=== PATIENT | female | born 1995 | race Caucasian/White ===

== ENCOUNTER 2019-08-11 11:35 | Inpatient (IN) | payer OTHER ==
[~2019-08-11] VITALS: Ht 162.6 cm; Wt 75.9 kg
[2019-08-11 10:18] LABS: BASOPHILS ABSOLUTE AUTO 0.02 K/mm3 (0.00-0.23); BASOPHILS PERCENT AUTO 0 % (0-2); EOSINOPHILS ABSOLUTE AUTO 0.07 K/mm3 (0.00-0.68); EOSINOPHILS PERCENT AUTO 1 % (0-6); Hematocrit 36.4 % (33.0-51.0); IMMATURE GRAN ABSOLUTE AUTO 0.04 K/mm3 (0.00-0.10); IMMATURE GRAN PERCENT AUTO 0 % (0-1); LYMPHOCYTES ABSOLUTE AUTO 2.91 K/mm3 (0.84-5.20); LYMPHOCYTES PERCENT AUTO 29 % (21-46); MONOCYTES ABSOLUTE AUTO 0.86 K/mm3 (0.16-1.47); MONOCYTES PERCENT AUTO 9 % (4-13); Mean Corpuscular HGB 30.5 pg (26.0-34.0); Mean Corpuscular Volume 93 fL (80-100); Mean Platelet Volume 9.9 fL (9.1-12.4); NEUTROPHILS PERCENT AUTO 61 % (41-73); Platelet Count 188 K/mm3 (150-400); RDW Coefficient Variation 12.4 % (11.7-14.2); RDW Standard Deviation 42.2 fL (35.1-46.3); Red Blood Cell Count 3.93 M/mm3 (3.80-5.20)
[~2019-08-11 11:35] MED LIST: AMOX50SU PO; LANS30EC; PRENATAL TABLE1 EAC2; Verotin-Gr Cap1 EACH PO; Zantac150 MG PO
[2019-08-12 09:55] LABS: PO2 Cord - Arterial 14.4 mmHg (16-20); pH Cord - Arterial 7.31 (7.28-7.35)
[2019-08-12 09:57] LABS: PCO2 Cord - Venous 47.4 mmHg (40-50); PO2 Cord - Venous 26.2 mmHg (28-32); pH Umbilical Cord - Venous 7.35 (7.26-7.35)
--- NOTE | 2019-08-12 10:02 | NUR ---
08/12/19 1002 Loni Ellison MALE BORN OVER REPEAT SECTION. APGARS 9/9. CORD SEGMENT GIVEN TO RT. CORD BLOOD GIVEN TO BABY RN. WEIGHT [phone]), PLACENTA [id number].
[2019-08-13 05:34] LABS: BASOPHILS ABSOLUTE AUTO 0.02 K/mm3 (0.00-0.23); BASOPHILS PERCENT AUTO 0 % (0-2); EOSINOPHILS ABSOLUTE AUTO 0.13 K/mm3 (0.00-0.68); EOSINOPHILS PERCENT AUTO 1 % (0-6); Hematocrit 31.9 % (33.0-51.0); Hemoglobin 10.6 g/dL (11.5-16.0); IMMATURE GRAN ABSOLUTE AUTO 0.06 K/mm3 (0.00-0.10); IMMATURE GRAN PERCENT AUTO 1 % (0-1); LYMPHOCYTES ABSOLUTE AUTO 3.88 K/mm3 (0.84-5.20); LYMPHOCYTES PERCENT AUTO 32 % (21-46); MONOCYTES ABSOLUTE AUTO 1.04 K/mm3 (0.16-1.47); MONOCYTES PERCENT AUTO 9 % (4-13); Mean Corpuscular HGB 30.4 pg (26.0-34.0); Mean Corpuscular HGB Conc 33.2 g/dL (31.5-36.5); Mean Corpuscular Volume 91 fL (80-100); Mean Platelet Volume 9.8 fL (9.1-12.4); NEUTROPHILS ABSOLUTE AUTO 7.05 K/mm3 (1.96-9.15); NEUTROPHILS PERCENT AUTO 58 % (41-73); Platelet Count 165 K/mm3 (150-400); RDW Coefficient Variation 12.8 % (11.7-14.2); RDW Standard Deviation 41.6 fL (35.1-46.3); Red Blood Cell Count 3.49 M/mm3 (3.80-5.20); White Blood Cell Count 12.18 K/mm3 (4.00-11.30)
--- NOTE | 2019-08-13 06:32 | NUR ---
900 URINE EMPTIED OUT OF ELIZABETH.
[2019-08-14] MEDS ORDERED: Percocet 5-3251 EACH PO (10:20)
[2019-08-14] MEDS ORDERED: DOCU100 PO (10:21)
[2019-08-14] MEDS ORDERED: IBUP400 PO (10:21)
== END 2019-08-14 11:45 | disposition home or self-care (01) | DRG 788 ==
LOC: BC 08-12 06:47
PROVIDERS: ADMIT Obstetrics & Gynecology
PROC: 10D00Z1 Extraction of Products of Conception, Low, Open Approach (ICD-10-PCS; principal; 2019-08-12 09:00)
DX: O34.211 Maternal care for low transverse scar from previous cesarean delivery (principal); O99.02 Anemia complicating childbirth; D50.9 Iron deficiency anemia, unspecified; Z3A.39 39 weeks gestation of pregnancy; Z37.0 Single live birth; Z87.891 Personal history of nicotine dependence; Z88.0 Allergy status to penicillin; Z91.040 Latex allergy status
CPT/HCPCS: 36415; 82803; 85025; 86850; 86900; 86901; J0690; J1200; J1885; J2370; J2590; J2765; J3010; J7120

== ENCOUNTER 2020-05-05 18:29 | Emergency (ER) | payer OTHER ==
[~2020-05-05] VITALS: Ht 160 cm; Wt 63.5 kg
[~2020-05-05 18:29] MED LIST changes: +DOCU100 PO; +IBUP400 PO; +Percocet 5-3251 EACH PO
[2020-05-05] MEDS ORDERED: IBUP600 PO (20:55)
== END 2020-05-05 21:59 | disposition home or self-care (01) ==
LOC: ER 18:29
DX: R09.1 Pleurisy (principal); Z88.0 Allergy status to penicillin; Z91.040 Latex allergy status; Z87.891 Personal history of nicotine dependence
CPT/HCPCS: 36415; 71045; 81025; 85379; 93005; 93010; 99284-25

== ENCOUNTER 2021-10-01 10:36 | Emergency (ER) | payer OTHER ==
[~2021-10-01] VITALS: Ht 167.6 cm; Wt 70.3 kg
[~2021-10-01 10:36] MED LIST changes: +IBUP600 PO
[2021-10-01] MEDS ORDERED: ONDA4ODT MM (11:17)
== END 2021-10-01 11:18 | disposition home or self-care (01) ==
LOC: ER 10:36
DX: U07.1 COVID-19 (principal); Z88.0 Allergy status to penicillin; Z91.040 Latex allergy status; Z87.891 Personal history of nicotine dependence
CPT/HCPCS: 99283

== ENCOUNTER 2023-09-06 18:05 | Emergency (ER) | payer OTHER ==
[~2023-09-06] VITALS: Ht 160 cm; Wt 69.4 kg
[~2023-09-06 18:05] MED LIST changes: +ONDA4ODT MM
[2023-09-06 18:19] VITALS: BP 145/90
[2023-09-06 18:42] LABS: BASOPHILS ABSOLUTE AUTO 0.03 K/mm3 (0.00-0.23); BASOPHILS PERCENT AUTO 0 % (0-2); EOSINOPHILS ABSOLUTE AUTO 0.16 K/mm3 (0.00-0.68); EOSINOPHILS PERCENT AUTO 2 % (0-6); Hematocrit 37.9 % (33.0-51.0); IMMATURE GRAN ABSOLUTE AUTO 0.01 K/mm3 (0.00-0.10); IMMATURE GRAN PERCENT AUTO 0 % (0-1); LYMPHOCYTES ABSOLUTE AUTO 4.28 K/mm3 (0.84-5.20); LYMPHOCYTES PERCENT AUTO 39 % (21-46); MONOCYTES ABSOLUTE AUTO 0.82 K/mm3 (0.16-1.47); MONOCYTES PERCENT AUTO 8 % (4-13); Mean Corpuscular HGB 29.7 pg (26.0-34.0); Mean Corpuscular HGB Conc 34.3 g/dL (31.5-36.5); Mean Corpuscular Volume 87 fL (80-100); Mean Platelet Volume 9.9 fL (9.1-12.4); NEUTROPHILS ABSOLUTE AUTO 5.63 K/mm3 (1.96-9.15); NEUTROPHILS PERCENT AUTO 51 % (41-73); Platelet Count 292 K/mm3 (150-400); RDW Coefficient Variation 12.4 % (11.7-14.2); RDW Standard Deviation 39.2 fL (35.1-46.3); Red Blood Cell Count 4.37 M/mm3 (3.80-5.20); White Blood Cell Count 10.93 K/mm3 (4.00-11.30)
[2023-09-06 19:05] LABS: Bilirubin, Total 0.2 mg/dL (0.1-1.0); Bun/Creatinine Ratio 21.7 (12.0-20.0); Calcium, Blood 9.2 mg/dL (8.5-10.1); Creatinine, Blood 0.92 mg/dL (0.40-1.00); Globulin, Blood 4.2 g/dL (2.2-4.0); Potassium, Blood 3.6 mmol/L (3.5-5.5); Total Protein, Blood 8.2 g/dL (6.4-8.2)
[2023-09-06 19:25] LABS: Source, Urine Clean Catch
[2023-09-06 19:31] LABS: Appearance, Urine Hazy (Clear); Bilirubin, Urine Neg (Neg); Blood, Urine 5+ (Neg); Color, Urine Yellow (P-Yellow); Glucose Qualitative, Urine Neg (Neg); Ketones, Urine Neg (Neg); Leukocyte Esterase, Urine 1+ (Neg); Nitrite, Urine Neg (Neg); Protein, Urine 1+ (Neg); Urobilinogen, Urine 1+ (Normal)
[2023-09-06 19:37] LABS: Bacteria Many /hpf; Squamous Epithelial Cells Many /hpf (Few)
== END 2023-09-06 21:33 | disposition home or self-care (01) ==
LOC: ER 18:05
PROVIDERS: Emergency Medicine
DX: R10.2 Pelvic and perineal pain (principal)
CPT/HCPCS: 80053; 81001; 81025; 83690; 85025; 87086; 96374; 99283-25; A9270; J2405; J7030

== ENCOUNTER 2023-11-13 09:06 | Emergency (ER) | payer OTHER ==
[~2023-11-13] VITALS: Ht 160 cm; Wt 72.6 kg
[2023-11-13 10:34] LABS: Influenza A, PCR NEGATIVE (NEGATIVE); Influenza B, PCR NEGATIVE (NEGATIVE); Resp Syncytial Virus, PCR NEGATIVE (NEGATIVE); SARS-Cov-2 (COVID-19) PCR, MMC NEGATIVE (NEGATIVE)
[2023-11-13 10:52] VITALS: BP 106/79
== END 2023-11-13 10:53 | disposition home or self-care (01) ==
LOC: ER 09:06
PROVIDERS: Physician Assistant
DX: R09.1 Pleurisy (principal); R07.89 Other chest pain; Z20.822 Contact with and (suspected) exposure to COVID-19; Z87.891 Personal history of nicotine dependence; Z88.0 Allergy status to penicillin; Z91.040 Latex allergy status
CPT/HCPCS: 0241U; 71046; 99284-25

== ENCOUNTER 2025-09-21 10:23 | Emergency (ER) | payer OTHER ==
[~2025-09-21] VITALS: Ht 160 cm; Wt 79.8 kg
[2025-09-21] MEDS ORDERED: PRENATAL TABLE1 EAC2 PO (10:41)
[2025-09-21 10:44] LABS: Source, Urine Voided
[2025-09-21 10:53] LABS: Bilirubin, Urine Neg (Neg); Color, Urine Yellow (P-Yellow); Glucose Qualitative, Urine Neg (Neg); Ketones, Urine Neg (Neg); Leukocyte Esterase, Urine Neg (Neg); Protein, Urine Neg (Neg); Specific Gravity, Urine 1.015 (1.003-1.022); Urobilinogen, Urine NORM (Normal)
[2025-09-21 11:06] LABS: BASOPHILS ABSOLUTE AUTO 0.02 K/mm3 (0.00-0.23); BASOPHILS PERCENT AUTO 0 % (0-2); EOSINOPHILS ABSOLUTE AUTO 0.06 K/mm3 (0.00-0.68); EOSINOPHILS PERCENT AUTO 1 % (0-6); Hematocrit 35.6 % (33.0-51.0); Hemoglobin 12.3 g/dL (11.5-16.0); IMMATURE GRAN ABSOLUTE AUTO 0.01 K/mm3 (0.00-0.10); IMMATURE GRAN PERCENT AUTO 0 % (0-1); LYMPHOCYTES ABSOLUTE AUTO 2.62 K/mm3 (0.84-5.20); LYMPHOCYTES PERCENT AUTO 37 % (21-46); MONOCYTES ABSOLUTE AUTO 0.60 K/mm3 (0.16-1.47); MONOCYTES PERCENT AUTO 9 % (4-13); Mean Corpuscular HGB Conc 34.6 g/dL (31.5-36.5); Mean Corpuscular Volume 85 fL (80-100); NEUTROPHILS ABSOLUTE AUTO 3.73 K/mm3 (1.96-9.15); NEUTROPHILS PERCENT AUTO 53 % (41-73); NRBC ABSOLUTE 0.00 K/mm3 (0.00-0.02); NRBC Auto 0.0 /100 WBC (0.0-0.2); Platelet Count 293 K/mm3 (150-400); RDW Coefficient Variation 13.4 % (11.7-14.2); RDW Standard Deviation 41.7 fL (35.1-46.3)
[2025-09-21 11:51] LABS: Alanine Aminotransfer (ALT/SGP 46.0 U/L (12-78); Albumin, Blood 3.8 g/dL (3.4-5.0); Albumin/Globulin Ratio 1.0 (0.8-1.8); Anion Gap 11.0 mmol/L (3-11); Aspartate Aminotrans (AST/SGOT 21.0 U/L (12-37); Beta HCG, Quantitative, Serum 17748.0 mIU/mL (0-3); Bilirubin, Total 0.3 mg/dL (0.1-1.0); Blood Urea Nitrogen 10.0 mg/dL (8-24); CO2, Blood 21.0 mmol/L (21-32); Calcium, Blood 9.1 mg/dL (8.5-10.1); Chloride, Blood 108.0 mmol/L (98-108); Creatinine, Blood 0.66 mg/dL (0.40-1.00); Globulin, Blood 3.8 g/dL (2.2-4.0); Glucose, Blood 97.0 mg/dL (70-99); Potassium, Blood 3.5 mmol/L (3.5-5.5); Sodium, Blood 136.0 mmol/L (136-145); Total Protein, Blood 7.6 g/dL (6.4-8.2)
[2025-09-21 12:24] VITALS: BP 125/86
== END 2025-09-21 12:25 | disposition home or self-care (01) ==
LOC: ER 10:23
PROVIDERS: Emergency Medicine
DX: O99.891 Other specified diseases and conditions complicating pregnancy (principal); R10.9 Unspecified abdominal pain; Z87.891 Personal history of nicotine dependence; Z3A.01 Less than 8 weeks gestation of pregnancy
CPT/HCPCS: 76801; 80053; 81003; 84702; 85025; 86900; 86901; 99284-25